=== PATIENT | male | born 1955 | race Caucasian/White ===

== ENCOUNTER 2017-06-01 18:26 | Emergency (ER) | payer MEDICARE ==
[~2017-06-01] VITALS: Ht 177.8 cm; Wt 80.3 kg
[~2017-06-01 18:26] MED LIST: AMBIEN 5 MG TABL5 M1 PO; ASPIR 8181 MG PO; AUGMENTIN 875-1 EACH PO; BRILINTA90 MG PO; CLONAZEPAM 1 MG1 M1 PO; COMPAZINE10 MG PO; COZAAR 50 MG TA50 M2 PO; DUONEB 2.5-0.5 M3 ML INH; ELIQUIS5 MG PO; ENOXAPARIN80 MG/0.1 SUBQ; FLECAINIDE ACET50 M1 PO; FLEXERIL PO; LANTUS SUBQ; LEVAQUIN 500 M500 M2 PO; LEVAQUIN 750 M750 MG PO; LIPITOR40 MG PO; LOPRESSOR25 PO; MEDROLDOSEPACK PO; METFORMIN HCL500 MG PO; NEURONTIN600 MG PO; NOVOLIN N100 UNIT/3 SQ; NOVOLOG100 UNIT/1 SUBQ; PACERONE 200 M200 M1 PO; PREDNISONE 10 M10 MG PO; PREDNISONE 20 M20 MG PO; PROTONIX40 M1 PO; ROBAXIN 750 MG750 M1 PO; SUBOXONE 8 MG-1 EAC3 SL; TOPROL XL25 MG PO; TRAZODONE HCL50 MG PO; VENTOLIN HFA 1818 GM INH; XARELTO15 MG PO; ZPAK PO
[2017-06-01] MEDS ORDERED: VISTARIL 25 MG25 M1 PO (18:46)
[2017-06-01 19:00] VITALS: BP 148/78
== END 2017-06-01 19:00 | disposition home or self-care (01) ==
LOC: M.ERS 18:26
DX: F41.9 Anxiety disorder, unspecified (principal); E11.40 Type 2 diabetes mellitus with diabetic neuropathy, unspecified; F17.210 Nicotine dependence, cigarettes, uncomplicated; Z95.5 Presence of coronary angioplasty implant and graft; Z79.4 Long term (current) use of insulin; Z90.49 Acquired absence of other specified parts of digestive tract; Z85.118 Personal history of other malignant neoplasm of bronchus and lung

== ENCOUNTER 2017-06-04 04:07 | Emergency (ER) | payer MEDICARE ==
[~2017-06-04] VITALS: Ht 177.8 cm; Wt 80.7 kg
[~2017-06-04 04:07] MED LIST changes: +VISTARIL 25 MG25 M1 PO
[2017-06-04 05:06] LABS: BE 1.5 mmol/L (-2 to +3); HCO3 26.2 mmol/L (22.0-26.0); PCO2 41.5 mmHg (35.0-45.0); PO2 80.7 mmHg (75.0-100.0); pH 7.418 (7.340-7.450)
[2017-06-04 05:30] LABS: HEMATOCRIT 36.6 % (42.0-52.0); HEMOGLOBIN 12.2 gm/dL (14.0-18.0); MCH 32.6 pg (26.0-34.0); MCHC 33.3 g/dL (28.0-37.0); MCV 97.9 fL (80.0-100.0); MPV 8.9 fl. (7.2-11.1); NUCLEATED RBCS 0 /100WBC; PLATELET COUNT* 182 thou/uL (150-400); RBC 3.74 mil/uL (4.50-6.00); RDW-CV 14.3 % (10.5-14.5); WBC 10.6 thou/uL (4.0-11.0)
[2017-06-04 05:40] LABS: ANION GAP 6 mmol/L (7-16); BUN 22 mg/dL (7-18); CALCIUM 8.3 mg/dL (8.5-10.1); CHLORIDE 98 mmol/L (98-107); CO2 32 mmol/L (21-32); CREATININE 1.2 mg/dL (0.6-1.3); GLUCOSE 324 mg/dL (70-99); POTASSIUM 4.2 mmol/L (3.5-5.1); SODIUM 136 mmol/L (136-145)
[2017-06-04 05:51] LABS: ALBUMIN 2.6 g/dL (3.4-5.0); ALKALINE PHOSPHATASE 74 U/L (46-116); NT-PRO BRAIN NAT PEPTIDE 1632 pg/mL (<300); SGOT 31 U/L (15-37); SGPT 27 U/L (30-65); TOTAL BILIRUBIN 0.2 mg/dL (<0.1-1.0); TOTAL PROTEIN 6.9 g/dL (6.4-8.2); TROPONIN-I LEVEL <0.06 ng/mL (<0.06)
[2017-06-04 06:07] LABS: ABSOLUTE EOSINOPHILS 0.1 thou/uL (0.0-0.7); ABSOLUTE LYMPHOCYTES 0.5 thou/uL (0.8-5.3); ABSOLUTE MONOCYTES 0.4 thou/uL (0.0-1.2); ABSOLUTE NEUTROPHILS 9.5 thou/uL (1.6-8.1); PLATELET ESTIMATE ADEQUATE
[2017-06-04 06:08] LABS: HYPOCHROMASIA 1+
[2017-06-04 06:26] VITALS: BP 116/52
--- NOTE | 2017-06-05 13:07 | EKG ---
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 : 1955 Requested By: Alena Mills Order Number: [id number] Slick MD: Ollie Herring Measurements Intervals [place] Rate: 59 P: 45 AZ: 214 QRS: 258 QRSD: 92 T: 71 QT: 459 QTc: 455 Interpretive Statements Sinus rhythm Prolonged [place] interval Left anterior fascicular block Abnormal R-wave progression, late transition Nonspecific T abnormalities, lateral leads Compared to ECG 04/24/2017 06:52:32 First degree AV block now present Left anterior fascicular block now present T-wave abnormality now present Right-axis deviation no longer present Electronically Signed On 06-05-2017 13:07:11 LOAD MANAGER by Ollie Herring [email or web address] <ELECTRONICALLY SIGNED> By: Ollie Herring MD, FACC 06/05/17 1307 0418 0418 Ollie Herring MD, [facility] /EPI
== END 2017-06-04 06:28 | disposition home or self-care (01) ==
LOC: M.ERS 04:07
PROVIDERS: Personal Emergency Response Attendant
DX: F41.9 Anxiety disorder, unspecified (principal); R06.02 Shortness of breath; F17.210 Nicotine dependence, cigarettes, uncomplicated; E11.9 Type 2 diabetes mellitus without complications; Z90.49 Acquired absence of other specified parts of digestive tract; E11.40 Type 2 diabetes mellitus with diabetic neuropathy, unspecified